=== PATIENT | male | born 1970 | race Two or more races ===

== ENCOUNTER 2022-12-11 09:02 | Outpatient (REF) | payer BC, SELFPAY ==
[2022-12-11 11:13] LABS: Alanine Aminotransferase 22 U/L (0-40); Albumin Level 4.1 g/dL (3.5-5.0); Alkaline Phosphatase 42 U/L (39-117); Anion Gap 13 (12-20); Aspartate Amino Transferase 22 U/L (5-37); Bilirubin Total 0.7 mg/dL (0.0-1.0); Blood Urea Nitrogen 17 mg/dL (9-16); Calcium 8.8 mg/dL (8.4-10.2); Carbon Dioxide 23 mmol/L (22-29); Chloride 106 mmol/L (96-108); Cholesterol 227 mg/dL; Estimated Glomerular Filt Rate > 60; Glucose Fasting 102 mg/dL (60-99); HDL Cholesterol 63 mg/dL; LDL Cholesterol Calculated 143 mg/dl; Sodium 138 mmol/L (135-145); TSH reflex Free T4 1.15 uIU/mL (0.32-4.0); Triglycerides 105 mg/dL
== END 2022-12-11 09:03 | disposition home or self-care (01) ==
LOC: HO.US 09:02
PROVIDERS: PCP Family Medicine; Visit Provider Family Medicine
DX: Z00.00 Encounter for general adult medical examination without abnormal findings (principal); Z12.5 Encounter for screening for malignant neoplasm of prostate; I10 Essential (primary) hypertension; K42.9 Umbilical hernia without obstruction or gangrene
CPT/HCPCS: 36415; 76705; 80053; 80061; 81003; 82043; 84153; 84443; 85025

== ENCOUNTER 2023-01-16 09:06 | Outpatient (AMB) | payer BC, SELFPAY ==
--- NOTE | 2023-01-16 09:08 | MHC.OFFVIS ---
Intake Vital Signs 01/16/23 09:12 Height 5 ft 8 in Weight 198 lb BMI 30.1 BP 134/71 Blood Pressure Location Rt brachial Position Sitting Pulse 66 Intake Visit Reasons: Umbilical hernia Intake Note: This patient presents for an assessment for an umbilical hernia. Patient c/o; bulge, reports pain, denies problems with bowel movements. Cistern Room Operator Required: No Accompanied by: Self / Same As Patient Allergies No Known Allergies Allergy (Verified 11/23/22 15:17) HPI HPI Comments History of Present Illness Details Patient presents with longstanding history of umbilical hernia. He is quite active. He has nonspecific abdominal complaints. He was seen by his medical doctor who referred him to the surgical clinic for further evaluation. Patient is otherwise tolerating a diet, having normal bowel habits. No other GI issues or complaints. Chart was reviewed and patient evaluated [facility] Surgical History [place] teeth extracted Family History Mother Diabetes Cardiovascular disease Thyroid disorder Father High blood pressure Other Mental health disorder Social History Housing: House Patient Tobacco Use Status: Former Tobacco user Tobacco use type: Smokeless Tobacco e-Cigarette/Vaping Use: Never Used service: No Current occupational status: employed Current occupation: [employer] for [employer] Physical Exam Vital Signs: Last Vital Signs Pulse 66 01/16/23 09:12 BP 134/71 01/16/23 09:12 BMI result Body Mass Index 30.1 Const Other: very fit male. Chest Other: Chest breath sounds bilaterally, HS 1 in 2 GI Other: Patient was examined both supine and standing with Valsalva. Abdomen soft. Approximately 3 cm large reducible umbilical hernia. Bilateral groin exam negative. Genitalia within normal limits Assessment & Plan Assessment & Plan (1) Umbilical hernia: Code(s): K42.9 - Umbilical hernia without obstruction or gangrene Plan Risks, benefits, alternatives of umbilical hernia pair with mesh open technique reviewed with the patient and included but not limited to bleeding, infection, recurrence, numbness, pain, scarring bowel injury and the patient wishes to proceed. All questions were answered. Arrangements were made for this. Coding Level of Care Code New Pt Level 5 (94133) Diagnoses Umbilical hernia K42.9
[2023-01-16 09:12] VITALS: BP 134/71; PULSE 66; BMI 30.1
== END 2023-01-16 09:22 | disposition home or self-care (01) ==
PROVIDERS: PCP Family Medicine; Referring Provider Family Medicine; Visit Provider Surgery
DX: K42.9 Umbilical hernia without obstruction or gangrene (principal)
CPT/HCPCS: 99205

== ENCOUNTER → 2023-01-16 09:06 | Outpatient (BNVA) | payer BC, SELFPAY | PROVIDERS: PCP Family Medicine; Referring Provider Family Medicine; Visit Provider Surgery ==

== ENCOUNTER 2023-01-19 08:27 | Day surgery (SDC) | payer BC, SELFPAY ==
--- NOTE | 2023-01-18 09:04 | HO.ANESPROP2 ---
Documented by User: Sarah Seay NP 01/18/23 09:04 HPI - Anesthesia Eval Consult details Narrative: 52yo M for Open Hernia Repair Umbilical w/ mesh PMFSH Active Problems Active Problems: All Active Problems (Updated 11/23/22 @ 15:54 by Pj Egan) Laboratory exam ordered as part of routine general medical examination (Acute) Umbilical hernia (Acute) Screening for colon cancer (Acute) Family History Family History Mother Diabetes Cardiovascular disease Thyroid disorder Father High blood pressure Other Mental health disorder Surgical History Surgical History (Updated 01/19/23 @ 08:41 by Kailyn Kunz RN) Hx of arthroscopic knee surgery [place] teeth extracted Social History Social History Housing: House Patient Tobacco Use Status: Former Tobacco user Tobacco use type: Smokeless Tobacco e-Cigarette/Vaping Use: Never Used Use of substances other than those prescribed or required for medical reasons: No Are you DNR?: No Advance Directives: No Advance Directives Information Provided: Yes service: No Current occupational status: employed 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 Meds Allergies Allergy/AdvReac Type Severity Reaction Status Date / Time No Known Allergies Allergy Verified 01/19/23 08:41 Home Medications Medication Instructions Recorded Confirmed Last Taken Type ibuprofen 200 mg tablet (Advil) 400 mg PO Q8H PRN Pain 11/23/22 Unknown History Exam Exam Date and Time: January 18, [id number] Pertinent Lab Results Pertinent Lab Results: Laboratory Tests 12/11/22 12/11/22 09:16 09:16 WBC 5.1 Hgb 15.0 Hct 46.1 Plt Count 264 Sodium 138 Potassium 4.0 Chloride 106 Carbon Dioxide 23 BUN 17 H Creatinine 0.97 Assessment and Plan Assessment Anesthesia Assessment: Chart Reviewed Documented by User: Nathan Jackman MD 01/19/23 09:10 [facility] Family History Family History Mother Diabetes Cardiovascular disease Thyroid disorder Father High blood pressure Other Mental health disorder Family history of problems with anesthesia: No Surgical History Surgical History (Updated 01/19/23 @ 08:41 by Kailyn Kunz RN) Hx of arthroscopic knee surgery [place] teeth extracted History of Problems with Anesthesia: No Social History Social History Housing: House Patient Tobacco Use Status: Former Tobacco user Tobacco use type: Smokeless Tobacco e-Cigarette/Vaping Use: Never Used Use of substances other than those prescribed or required for medical reasons: No Are you DNR?: No Advance Directives: No Advance Directives Information Provided: Yes service: No Current occupational status: employed 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 Meds Allergies Allergy/AdvReac Type Severity Reaction Status Date / Time No Known Allergies Allergy Verified 01/19/23 08:41 Home Medications Medication Instructions Recorded Confirmed Last Taken Type ibuprofen 200 mg tablet (Advil) 400 mg PO Q8H PRN Pain 11/23/22 Unknown History Exam Airway Mallampati Class: II TM Dist: >3cm Neck ROM: Limited Heart: rrr Lungs: cta Assessment and Plan Assessment Anesthesia Assessment: Anesthesia Plan Discussed Final Anesthetic Review Family History of Problems with Anesthesia: No History of Problems with Anesthesia: No NPO: Yes ASA Class: II Final Preanesthetic Review: No Changes in Pt Med Stat, Meds/Allgs Chart Reviewed, Consent Obtained/Reviewed and Anes Risks/Benef Reviewed Patient Risk: Low Procedure Risk: Intermediate Anesthetic Plan Anesthetic Plan: GA and Agree w/ Assess. and Plan Disposition: Standard PACU
--- NOTE | 2023-01-18 22:10 | MHC.SHP ---
Pre-Procedural Eval Section A Date of Service: 01/18/23 The patient is an INPATIENT: No Changes since office visit: No Cold of Flu in the past 2 weeks, No New Medical Problems, No Changes in Medication and No Patient answered all questions The History & Physical has been completed within 30 days and I have reviewed it.: Yes Section B Chief Complaint: Umbilical hernia without obstruction or gangrene Allergies: Allergies Allergy/AdvReac Type Severity Reaction Status Date / Time No Known Allergies Allergy Verified 11/23/22 15:17 Plan I have reviewed the history and physical and performed a pertinent physical examination on my patient. No changes have occurred unless specified. Time Spent With Patient Time: Total time managing care of this patient today ____ minutes.
[2023-01-19 08:42] VITALS: BMI 29.5
[2023-01-19 08:57] VITALS: BP 141/77; PULSE 56; RESP 15; TEMP 36.2; O2SAT 96
[2023-01-19] MEDS: Lactated Ringers 1,000 ML 100 ML IVCONT (09:04)
[2023-01-19 10:12] VITALS: BP 121/83; PULSE 83; RESP 14; TEMP 36.2; O2SAT 100
[2023-01-19 10:17] VITALS: BP 128/87; PULSE 74; RESP 18; O2SAT 100
[2023-01-19 10:22] VITALS: BP 118/80; PULSE 65; RESP 16; O2SAT 99
[2023-01-19 10:27] VITALS: BP 128/78; PULSE 61; RESP 16; O2SAT 98
[2023-01-19 10:42] VITALS: BP 129/83; PULSE 59; RESP 18; TEMP 37; O2SAT 99
--- NOTE | 2023-01-19 11:00 | PC.NURSE ---
Surgeon putting in dc order. WILDLIFE ECOLOGIST and mechatronics engineer aware mesh card needed prior to pt leaving.
--- NOTE | 2023-02-26 09:30 | P.OP_ITS ---
Operative Note Operative Note Date of Service: 01/19/23 Narrative: Preoperative diagnosis: [] Symptomatic umbilical hernia Postop diagnosis: [] Same Procedure [] repair umbilical hernia Surgeon: [] Jonathon Hematology Nurse Educator: [] Type of Anesthesia: [] See anesthesia note Indication for surgery: [] Approximately 3 cm umbilical hernia Findings: [] Patient brought to the operating room, placed on the operative table supine position, after adequate level of anesthesia was induced, the p atient's abdomen was prepped and draped in usual sterile fashion. Using a supraumbilical curvilinear incision, this carried down through skin, subcutaneous tissue, down to hernia sac. This was from the posterior aspect of the umbilicus and dissected down to the fascia. Sac was opened where omental contents were reduced. Redundant sac was amputated using Bovie.. Fascia margins were circumferentially cleared. Repair was accomplished by placing a Bard patch in the defect and the superficial layer of the mesh was circumferentially sutured to the surrounding fascia using 0 Ethibond suture. A completion procedure, mesh was in good position with no gaps or tension. Wounds irrigated, secured hemostasis. It Was closed in the following manner; posterior aspect of the umbilicus was tacked to the wound floor using interrupted 3-0 Vicryl sutures. Skin was closed using interrupted inverted dermal 3-0 Vicryl sutures followed by Steri-Strips and sterile dressings. Wounds infiltrated 0.5% Marcaine at completion. Sponge, needle, instrument counts reported correct. Patient tolerated procedure well and emerged anesthesia stable condition. EBL minimal
== END 2023-01-19 11:37 | disposition home or self-care (01) ==
PROVIDERS: PCP Family Medicine; Visit Provider Surgery
PROC: (CPT 49591; principal; 2023-01-19 09:40)
DX: K42.9 Umbilical hernia without obstruction or gangrene (principal); Z79.1 Long term (current) use of non-steroidal anti-inflammatories (NSAID); F17.290 Nicotine dependence, other tobacco product, uncomplicated
CPT/HCPCS: 49591; C1781; J0461; J0690; J1885; J2250

== ENCOUNTER → 2023-01-19 08:27 | Outpatient (BNV) | payer BC, SELFPAY | PROVIDERS: PCP Family Medicine; Visit Provider Surgery | DX: K42.9 Umbilical hernia without obstruction or gangrene (principal) | CPT/HCPCS: 49593 ==

== ENCOUNTER 2023-01-29 09:35 | Outpatient (AMB) | payer BC, SELFPAY ==
--- NOTE | 2023-01-29 09:49 | A.OFFVIS_ITS ---
Intake Vital Signs 01/29/23 09:53 BP 118/80 Blood Pressure Location Rt brachial Position Sitting Pulse 51 Intake Visit Reasons: S/P umbilical hernia w/mesh Intake Note: This patient presents for a post-op assessment status post umbilical hernia repair with mesh. Patient c/o; reports no changes or complaints at this time. Cloth Finishing Range Back Tender Required: No Accompanied by: Self / Same As Patient Allergies No Known Allergies Allergy (Verified 01/29/23 09:53) HPI HPI Comments History of Present Illness Details Patient presents for follow-up status post abdominal hernia repair. Doing well. He is tolerating regular diet. He is having normal bowel habits. He is increasing his activity level. He has minimal incisional discomfort. [facility] Surgical History (Updated 01/29/23 @ 09:56 by KAMILLE Corey) History of umbilical hernia repair Hx of arthroscopic knee surgery [place] teeth extracted Family History Mother Diabetes Cardiovascular disease Thyroid disorder Father High blood pressure Other Mental health disorder Social History Housing: House Patient Tobacco Use Status: Former Tobacco user Tobacco use type: Smokeless Tobacco e-Cigarette/Vaping Use: Never Used service: No Current occupational status: employed Current occupation: [employer] for [employer] Physical Exam Vital Signs: Last Vital Signs Pulse 51 01/29/23 09:53 BP 118/80 01/29/23 09:53 GI Other: Abdomen soft. Wound clean dry and intact. Assessment & Plan Assessment & Plan (1) Umbilical hernia: Code(s): K42.9 - Umbilical hernia without obstruction or gangrene Plan Patient has been given local wound instructions, and will follow-up p.r.n. Coding Level of Care Code Global (51880) Diagnoses Umbilical hernia K42.9
[2023-01-29 09:53] VITALS: BP 118/80; PULSE 51
== END 2023-01-29 10:03 | disposition home or self-care (01) ==
PROVIDERS: PCP Family Medicine; Visit Provider Surgery
DX: K42.9 Umbilical hernia without obstruction or gangrene (principal)
CPT/HCPCS: 99213

== ENCOUNTER → 2023-01-29 09:35 | Outpatient (BNVA) | payer BC, SELFPAY | PROVIDERS: PCP Family Medicine; Visit Provider Surgery ==

== ENCOUNTER 2024-05-28 14:34 | Outpatient (AMB) | payer BC, SELFPAY ==
--- NOTE | 2024-05-28 14:46 | A.OFFPC_ITS ---
Vital Signs 05/28/24 14:48 Height 5 ft 8.5 in Weight 197 lb 6 oz BMI 29.6 BP 124/88 Blood Pressure Location Rt brachial Position Sitting Respiration 16 Pulse 69 Pulse Source Pulse Oximeter Pulse Oximetry (%) 95 Oxygen Delivery Method Room Air Intake Visit Reasons: F/U CHRONIC CONDITIONS Intake Note: f/u chronic conditions Allergies No Known Allergies Allergy (Verified 05/28/24 14:46) HPI F/U CHRONIC CONDITIONS HPI Details 53 y/o male presents to f/u chronic cond itions and a CPE with f/u labs and health maintenance. Notes umbilical hernia repair had went well. Labs drawn last year showed elevated cholesterol - TC 227, LDL 143. HDL 63. Triglycerides 105. Elevated fasting glucose of 102. A1c 3.7%. [facility] Surgical History (Updated 05/28/24 @ 15:36 by Pj Egan) History of umbilical hernia repair Hx of arthroscopic knee surgery [place] teeth extracted Family History Mother Diabetes Cardiovascular disease Thyroid disorder Father High blood pressure Other Mental health disorder Social History Housing: House Patient Tobacco Use Status: Former Tobacco user Tobacco use type: Smokeless Tobacco e-Cigarette/Vaping Use: Never Used service: No Current occupational status: employed Current occupation: [employer] Questionnaire PHQ-9 Over the last 2 weeks, how often have you been bothered by any of the following problems? 1. Little interest or pleasure in doing things: not at all 2. Feeling down, depressed, or hopeless: not at all 3. Trouble falling or staying asleep, or sleeping too much: not at all 4. Feeling tired or having little energy: not at all 5. Poor appetite or overeating: not at all 6. Feeling bad about yourself - or that you are a failure or have let yourself or your family down: not at all 7. Trouble concentrating on things, such as reading the newspaper or watching television: not at all 8. Moving or speaking so slowly that other people could have noticed. Or the opposite - being so fidgety or restless that you have been moving around a lot more than usual: not at all 9. Thoughts that you would be better off or of hurting yourself in some way: not at all Total score: 0 Source: Developed by Drs. Sadiq Peralta, Nancy Tan, Albino Hwang and colleagues, with an educational ld from [employer]. Thrive Questionnaire I am a: Patient What is your living situation today?: I have a steady place to live Within the past 12 months, did the food you bought not last and you didn't have the money to get more?: Often true Within the past 12 months, did you worry whether your food would run out before you got money to buy more?: Never true Do you have trouble paying for medicines?: No Do you have trouble getting transportation to medical appointments?: No Do you have trouble paying your heating and electricity bill?: No Do you have trouble taking care of your child, family member or friend?: No Do you have trouble with day-to-day activities such as bathing, preparing meals, shopping, managing finances, etc.?: No Are you currently unemployed and looking for a job?: No Are you interested in more education?: No Please select the resources that you would like help with: None Currently or been in a relationship where the following occur: No concerns reported THRIVE Score: 1 AUDIT C Alcohol Use Questionnaire (AUDIT-C) 1. How often do you have a drink containing alcohol?: 2-4 times a month 2. How many drinks containing alcohol do you have on a typical day when you are drinking?: 3 or 4 3. How often do you have six or more drinks on one occasion?: Less than monthly Total Score: 4 PINO-7 AMB Questionnaire PINO-7 Feeling nervous, anxious, or on edge: 0 = Not at all Not being able to stop or control worryin = Not at all Worrying too much about different things: 0 = Not at all Trouble relaxin = Not at all Being so restless that it is hard to sit still: 0 = Not at all Becoming easily annoyed or irritable: 0 = Not at all Feeling afraid as if something awful might happen: 0 = Not at all Total PINO-7 score (0-4 normal; 5-9 mild; 10-14 moderate; 15-21 severe): 0 Source: Developed by Nancy Broderick B.W. Dominick, Albino Hwang and colleagues, with an educational ld from [employer]. Review of Systems Const Denies chills, Denies fatigue, Denies fever(s), Denies headache(s) and Denies weakness Eyes Denies change in vision ENT Denies dizziness, Denies headache(s), Denies hearing loss, Denies nasal congestion, Denies sinus pain, Denies sinus pressure and Denies sore throat Card Denies chest pain, Denies lightheadedness, Denies dyspnea and Denies other (palpitations) Resp Denies cough, Denies dyspnea and Denies wheezing GI Denies abdominal pain, Denies melena, Denies hematochezia, Denies change in bowel habits, Denies dyspepsia and Denies nausea Denies hematuria and Denies dysuria Musc Denies abnormal gait, Denies myalgias, Denies arthralgias, Denies numbness and Denies tingling Skin/Breast Denies rash, Denies unusual bruising and Denies wounds Neuro Denies abnormal gait, Denies dizziness, Denies headache(s), Denies memory loss, Denies numbness, Denies Sensory deficit (Neuro), Denies tingling and Denies weakness Psych Denies anxiety, Denies depression and Denies memory loss Endo Denies cold intolerance, Denies fatigue, Denies heat intolerance, Denies polydipsia and Denies polyuria Eleazar/Lymph Denies easy bleeding and Denies easy bruising Aller/Immun Denies wheezing Physical exam (Primary Care) Vital Signs: Last Vital Signs Pulse 69 05/28/24 14:48 Resp 16 05/28/24 14:48 BP 124/88 05/28/24 14:48 Pulse Ox 95 05/28/24 14:48 Oxygen Delivery Method Room Air 05/28/24 14:48 BMI result Body Mass Index 29.6 Tobacco/Smoking Status: Tobacco use Status Patient Tobacco Use Status Former Tobacco user 05/28/24 14:52 Tobacco use type Smokeless Tobacco 05/28/24 14:52 e-Cigarette/Vaping Use Never Used 05/28/24 14:52 PHQ-9: PHQ-9 Score PHQ-9: Total score 0 05/28/24 15:31 Currently or been in a relationship where the following occur: No concerns reported Const General: no acute distress, well developed, alert and awake Nutritional Appearance: well nourished Orientation/consciousness: patient oriented x3 HENMT Head: Yes normocephalic and Yes atraumatic Ears: hearing grossly normal bilaterally and TM's normal bilaterally General nose exam: Normal external nose present and Normal nares present Mouth: Normal oral and palatal mucosa present and moist mucous membranes Teeth and gingiva: dentition normal Throat: Yes posterior oropharynx normal Eyes General: appearance normal, both eyes and all related structures Pupils: Equal, round and reactive pupils present and Pupil accommodation reflex normal EOM: EOMs intact bilaterally Neck Neck: Yes normal visual inspection, Yes no lymphadenopathy and Yes trachea midline Thyroid: Thyroid normal Carotids: no bruits Lymphatic: no lymphadenopathy noted Chest Chest palpation & inspection: normal inspection of the chest Resp Effort & Inspection: normal respiratory effort Auscultation: clear to auscultation bilaterally Cardio Rate: regular rate Rhythm: regular rhythm Heart sounds: S1 normal heart sound present, S2 normal heart sound present, no gallops, no murmurs and no rubs Bruits: no abdominal aortic bruits and no carotid bruits GI Palpation (GI): No Abdominal aortic bruit present, Soft to palpation, nontender, No hepatosplenomegaly present and No Rebound tenderness present Auscultation: normal bowel sounds General: Yes no CVA tenderness Back/Spine/Pelvis Back: no CVA tenderness Cervical Spine: cervical ROM normal and No Cervical spine tenderness Thoracic/Lumbar Spine: thoraco-lumbar ROM normal, No pain with thoraco-lumbar ROM, No thoracic spinal tenderness and No lumbar spinal tenderness Skin Lesions: no lesions Rashes: no rashes Trauma: no lacerations or abrasions Wounds: no wounds Nails: normal Neuro General: patient oriented x3 Cranial nerves: Yes Equal, round and reactive pupils present Cognition (Neuro): normal cognition Gait exam (Neuro): Normal gait present Motor exam (neuro): 5/5 motor strength present throughout Sensory Exam: No Sensory deficit (Neuro) Deep tendon reflexes (DTR's): Right patellar reflex intensity grade: 2+ and Left patellar reflex intensity grade: 2+ Extrem General: Yes normal to inspection and No edema Psych Appearance: grossly normal Affect: normal affect Attitude: cooperative Thought process: Normal thought process present Coding Level of Care Code Est Pt Level 3 (47233) Est Pt Prev Care 40-64y(31478) Diagnoses Adult general medical exam Z00.00 History of umbilical hernia repair Z98.890; Z87.19 Elevated LDL cholesterol level E78.00 Elevated fasting glucose R73.01 Screening for colon cancer Z12.11 Screening for prostate cancer Z12.5 Assessment & Plan Assessment & Plan (1) Adult general medical exam: Code(s): Z00.00 - Encounter for general adult medical examination without abnormal findings Category: Medical Plan: 53-year-old?male?presents?for?complete?physical?exam Encouraged?healthy?diet?with?active?lifestyle?and?plenty?of?exercise (2) History of umbilical hernia repair: Comment: umbilical hernia repair with mesh, Code(s): Z98.890 - Other specified postprocedural states; Z87.19 - Personal history of other diseases of the digestive system Category: Surgical Plan: Repaired (3) Elevated LDL cholesterol level: Code(s): E78.00 - Pure hypercholesterolemia, unspecified Category: Medical Plan: LDL?cholesterol?is?elevated?at?last?lab?work?a?year?ago. Will?repeat?this Will?follow-up?by?telemedicine?in?a?few?weeks?to?discuss (4) Elevated fasting glucose: Code(s): R73.01 - Impaired fasting glucose Category: Medical Plan: Fasting?blood?sugar?was?mildly?elevated?when?last?checked. No?family?history?of?diabetes A1c?today?is?3.7% I?suspect?the?fasting?bl ood?sugar?elevation?is?artifact?or?patient?was?not?fasting?as?well?as?he?thigh?w as. No?evidence?of blood sugar control problem at this time. (5) Screening for colon cancer: Code(s): Z12.11 - Encounter for screening for malignant neoplasm of colon Category: Medical Plan: Patient?says?he?has?a?Cologuard?kit?at?home.??He?will?ensure?that?it?is?not?expi red Otherwise?he?can?let?me?know?and?I?reorder?this?for?him He?denies?any?family?history?of?colon?cancer?or?polyps (6) Screening for prostate cancer: Code(s): Z12.5 - Encounter for screening for malignant neoplasm of prostate Category: Medical Plan: PSA last year was WNL PSA ordered Orders: Orders Prostate Specific Antigen Scr Today Z12.5 - Encounter for screening for malignant neoplasm of prostate UA and rflx microscopic Today Z00.00 - Encounter for general adult medical examination without abnormal findings Comprehensive [place]. Panel Fast Today Z00.00 - Encounter for general adult medical examination without abnormal findings Microalbumin, Random (w Creat) Today I10 - Essential (primary) hypertension Lipid Panel Today Z00.00 - Encounter for general adult medical examination without abnormal findings TSH reflex Free T4 Today Z00.00 - Encounter for general adult medical examination without abnormal findings
[2024-05-28 14:48] VITALS: BP 124/88; PULSE 69; RESP 16; O2SAT 95; BMI 29.6
== END 2024-05-28 15:58 | disposition home or self-care (01) ==
PROVIDERS: PCP Family Medicine; Visit Provider Family Medicine
DX: Z00.00 Encounter for general adult medical examination without abnormal findings (principal); E78.00 Pure hypercholesterolemia, unspecified; R73.01 Impaired fasting glucose; Z98.890 Other specified postprocedural states; Z87.19 Personal history of other diseases of the digestive system; Z12.11 Encounter for screening for malignant neoplasm of colon; Z12.5 Encounter for screening for malignant neoplasm of prostate

== ENCOUNTER → 2024-05-28 14:34 | Outpatient (BNVA) | payer BC, SELFPAY | PROVIDERS: PCP Family Medicine; Visit Provider Family Medicine | DX: Z00.00 Encounter for general adult medical examination without abnormal findings (principal); E78.00 Pure hypercholesterolemia, unspecified; R73.01 Impaired fasting glucose; Z87.19 Personal history of other diseases of the digestive system | CPT/HCPCS: 83036; 96127 ==